=== PATIENT | male | born 1980 | race African-American/Black ===

== ENCOUNTER 2016-10-21 08:52 | Emergency (ER) | payer MEDICAID ==
[~2016-10-21] VITALS: Ht 175.3 cm; Wt 84.0 kg
[~2016-10-21 08:52] MED LIST: IBUP-1542 PO
[2016-10-21 08:56] VITALS: Ht 175.3 cm; Wt 84.0 kg
[2016-10-21] MEDS ORDERED: CEPH-443 PO (09:51)
[2016-10-21] MEDS ORDERED: LIDOCAINE 1% (MDV) 20 ML INJ SC ONE (10:00)
[2016-10-21] MEDS ORDERED: IBUPROFEN 800 MG TAB PO ONE (10:00)
--- NOTE | 2016-10-21 12:05 | ERD ---
ER Documentation Chief Complaint Date/Time DATE: 10/21/16 TIME: 12:04 Chief Complaint LEFT 3RD DIGIT LAC TODAY HPI 36-year-old male coming in complaining of laceration to left distal middle finger. Patient cut finger on a weed Jose blade earlier today. Patient does not have weakness with flexion extension of finger. Patient has not taken medications for pain. Patient is right-hand dominant. Last tetanus shot was one year ago. ROS All systems reviewed and are negative except as per history of present illness. Medications Home Meds Active Scripts Cephalexin* (Keflex*) 500 Mg Capsule, 500 MG PO QID for 7 Days, CAP Prov:CHIDI CASTRO PA-C 10/21/16 Ibuprofen* (Motrin*) 600 Mg Tab, 600 MG PO Q6H Y for PAIN AND OR ELEVATED TEMP, #30 TAB Prov:HONG DUNHAM [employer] 01/27/16 Allergies Allergies: Coded Allergies: No Known Drug Allergies (Verified Allergy, Unknown, 10/21/16) PMhx/Soc History of Surgery: No Anesthesia Reaction: No Hx Neurological Disorder: No Hx Respiratory Disorders: No Hx Cardiac Disorders: No Hx Psychiatric Problems: No Hx Miscellaneous Medical Probl: No Hx Alcohol Use: Yes Hx Substance Use: Yes (Weeds Smoking) Hx Tobacco Use: Yes (1 pack/day) Smoking Status: Current every day smoker Physical Exam Vitals Vital Signs Date Time Temp Pulse Resp B/P Pulse Ox O2 Delivery O2 Flow Rate FiO2 10/21/16 08:56 98.0 97 18 126/96 98 Physical Exam GENERAL: The patient is well-appearing, well-nourished, in no acute distress CHEST: Clear to auscultation bilaterally. There are no rales, wheezes or rhonchi. HEART: Regular rate and rhythm. No murmurs, clicks, rubs or gallops. No S3 or S4. EXTREMITIES: Equal pulses bilaterally. There is no peripheral clubbing, cyanosis or edema. No focal swelling or erythema. Full range of motion. Grossly neurovascularly intact. NEUROLOGIC: Normal flexion and extension of left middle finger at DIP and PIP joint. Neurovascularly intact. Cap refill less than 2 seconds. SKIN: Superficial 2 mm linear laceration adjacent to nail bed of left middle finger. No active bleeding. No foreign bodies appreciated. Results 24 hrs Current Medications Medications (Trade) Dose Ordered Sig/Ever Route PRN Reason Start Time Stop Time Status Last Admin Dose Admin Lidocaine (Xylocaine 1% (Mdv) 20 ml) 20 ml ONCE ONCE SC 10/21/16 10:00 10/21/16 10:01 DC Ibuprofen (Motrin) 800 mg ONCE ONCE PO 10/21/16 10:00 10/21/16 10:01 DC 10/21/16 09:57 Procedures/MDM ER course: 2 cc plain lidocaine injected and volar fashion of left middle finger. Site cleaned with copious amounts of normal saline. Dermabond applied. Band-Aid applied after Dermabond dried. MDM: I have low suspicion for tendon or ligament injury. I have low suspicion for bony injury. I have low suspicion for neurodeficit. Patient's exam is within normal limits. I do not feel there is indication for x-ray as there is low suspicion for a bone injury. Patient has normal flexion and extension of the digit with normal neuro and sensation. Patient will be placed on prophylactic antibiotics. Patient is recommended to follow-up in 2 days for wound check. Patient is discharged with strict ER precautions. Departure Diagnosis: Primary Impression: Laceration Condition: Stable Patient Instructions: Laceration, Hand Referrals: COMM[facility]ITY CL[facility] YOU HAVE RECEIVED A MEDICAL SCREENING EXAM AND THE RESULTS INDICATE THAT YOU DO NOT HAVE A CONDITION THAT REQUIRES URGENT TREATMENT IN THE EMERGENCY DEPARTMENT. FURTHER EVALUATION AND TREATMENT OF YOUR CONDITION CAN WAIT UNTIL YOU ARE SEEN IN YOUR DOCTORS OFFICE WITHIN THE NEXT 1-2 DAYS. IT IS YOUR RESPONSIBILITY TO MAKE AN APPOINTMENT FOR FOLOW-UP CARE. IF YOU HAVE A PRIMARY DOCTOR --you should call your primary doctor and schedule an appointment IF YOU DO NOT HAVE A PRIMARY DOCTOR YOU CAN CALL OUR PHYSICIAN REFERRAL HOTLINE AT IF YOU CAN NOT AFFORD TO SEE A PHYSICIAN YOU CAN CHOSE FROM THE FOLLOWING [facility] [address] [facility] [address] [facility] [address] [facility] [address] [facility] [address] [place] [address]. [facility]. [address] Additional Instructions: FOLLOW UP WITH YOUR PRIMARY CARE PHYSICIAN TOMORROW.Return to this facility if you are not improving as expected. CHIDI CASTRO PA-C Oct 21, 2016 12:05
== END 2016-10-21 09:58 | disposition home or self-care (01) ==
LOC: FTE 08:52
DX: S61.213A Laceration without foreign body of left middle finger without damage to nail, initial encounter (principal); F17.210 Nicotine dependence, cigarettes, uncomplicated; W26.8XXA Contact with other sharp object(s), not elsewhere classified, initial encounter; Y92.9 Unspecified place or not applicable
CPT/HCPCS: 12001; Z7502; Z7610